=== PATIENT | male | born 1965 | race Caucasian/White ===

== ENCOUNTER 2017-02-19 14:57 | Emergency (ER) | payer SELFPAY ==
--- NOTE | 2017-02-19 15:02 | PDOC ---
History of Present Illness <Darwin Rogers - Last Filed: 02/19/17 15:42> - General History Source: Patient Exam Limitations: No Limitations - History of Present Illness Initial Comments: 02/19/17 15:59 Patient is a 51 year old male with a significant past medical history of HTN who presents to the ED with left arm weakness s/p left arm injury that occured one week ago. Patient reports getting struck on his left arm with sheet rock while at work causing immediate pain. He reports not coming into the ED immediately stating he thought it would relieve itself overtime. Patient reports left elbow swelling and bruising that he states dissipated yesterday morning. Patient states left arm has felt weak since incident. Denies loss of consciousness, hitting of head. Denies numbness, tingles, sensation changes. Denies chest pain, SOB. Denies fever, chills. Denies contact with sick individuals, out of state travel. Denies any other symptoms. Allergies: None Social history: packing room worker. No smoking. Social drinker. No illicit drugs. Surgical history: None PMD: None <Rafy Trevino - Last Filed: 02/19/17 16:00> - General Chief Complaint: Injury Stated Complaint: LEFT UPPER ARM PAIN Time Seen by Provider: 02/19/17 15:02 Past History - Suicide/Smoking/Psychosocial Hx Smoking History: Never smoked Hx Alcohol Use: No Drug/Substance Use Hx: No Substance Use Type: None <Darwin Rogers - Last Filed: 02/19/17 15:42> <Rafy Trevino - Last Filed: 02/19/17 16:00> - Past Medical History Allergies/Adverse Reactions: Allergies Allergy/AdvReac Type Severity Reaction Status Date / Time No Known Allergies Allergy Verified 02/19/17 15:01 Home Medications: Ambulatory Orders Amlodipine Besylate [Norvasc -] 5 mg PO HS 02/19/17 Review of Systems - Review of Systems Able to Perform ROS?: Yes Comments:: 02/19/17 15:59 ROS: A complete review of 10 out of 10 review of systems is taken and is negative apart from what is previously mentioned below and in the HPI. All Other Systems: Reviewed and Negative <Rafy Trevino - Last Filed: 02/19/17 16:00> *Physical Exam - Vital Signs Last Vital Signs Temp Pulse Resp BP Pulse Ox 97.6 F 64 16 150/97 98 02/19/17 14:59 02/19/17 14:59 02/19/17 14:59 02/19/17 14:59 02/19/17 14:59 - Physical Exam Comments: 02/19/17 16:00 Vitals: Triage Vital signs reviewed General Appearance: no acute distress, well nourished well developed Head: Atraumatic Eyes: Pupils equal reactive round, extraocular movement intact Ears: TM's normal bilaterally Nose: Nares patent bilaterally; no nasal congestion Chest Wall: Nontender Cardiac: Regular rate and rhythm, no murmurs, no rubs, no gallops Lungs: Clear to auscultation bilateral, good air movement bilaterally Extremities: +Deficit over the medial aspect of the distal portion of the bicep , With flexion. +Approximately 50 percent of the cicep would roll up rowar the humerus. +Neurovascularly intact distally Full range of motion to all extremities, no cyanosis, clubbing, or edema Skin: Warm and dry, no rashes or lesions, no rash, no petechiae Neuro: AOX3; Cranial Nerves 2-12 grossly intact, Strength intact to all extremities, Sensation intact to all extremities, gait normal Psych: Normal mood, normal affect <Rafy Trevino - Last Filed: 02/19/17 16:00> *DC/Admit/Observation/Transfer - Discharge Dispostion Admit: No <Darwin Rogers - Last Filed: 02/19/17 15:42> - Attestations Scribe Attestion: 02/19/17 16:00 Documentation prepared by Rafy Trevino, acting as medical records director for Darwin Rogers MD, MD/DO. <Rafy Trevino - Last Filed: 02/19/17 16:00> Diagnosis at time of Disposition: Biceps muscle tear Qualifiers: Encounter type: initial encounter Laterality: right Qualified Code(s): S46.211A - Strain of muscle, fascia and tendon of other parts of biceps, right arm, initial encounter - Discharge Dispostion Disposition: HOME Condition at time of disposition: Good - Referrals Referrals: Ubaldo Serrano MD [Staff Physician] - - Patient Instructions Printed Discharge Instructions: How to Use a Sling Additional Instructions: You have a partial tear of your biceps muscle. Follow-up with orthopedics this week. Avoid heavy lifting or strenuous exercise with the arm. Return to the emergency department for any concerns.
[2017-02-19 15:09] VITALS: BP 150/97; PULSE 64; TEMP 97.6; BMI 31.3
== END 2017-02-19 16:00 | disposition home or self-care (01) ==
LOC: FER 14:57
DX: S46.211A Strain of muscle, fascia and tendon of other parts of biceps, right arm, initial encounter (principal); W22.8XXA Striking against or struck by other objects, initial encounter; Y93.89 Activity, other specified; Y92.9 Unspecified place or not applicable; Y99.0 Civilian activity done for income or pay; I10 Essential (primary) hypertension
CPT/HCPCS: 99281-25